=== PATIENT | female | born 1965 | race Caucasian/White ===

== ENCOUNTER 2020-10-16 21:15 | Emergency (ER) | payer OTHER ==
[~2020-10-16] VITALS: Ht 165.1 cm; Wt 83.9 kg
[2020-10-16] MEDS ORDERED: LISINOPRIL20 MG PO (21:45)
[2020-10-16 21:53] LABS: URINE BILIRUBIN NEGATIVE (Negative); URINE BLOOD TRACE (Negative); URINE CLARITY CLEAR; URINE COLOR YELLOW; URINE GLUCOSE-RANDOM NEGATIVE (Negative); URINE KETONES NEGATIVE (Negative); URINE LEUKOCYTES-REFLEX NEGATIVE (Negative); URINE NITRITE-REFLEX NEGATIVE (Negative); URINE PROTEIN NEGATIVE (Negative); URINE SPECIFIC GRAVITY 1.025 (1.005-1.030); URINE UROBILINOGEN 0.2 E.U./dl (0.2-1.0)
[2020-10-16 21:59] LABS: AMP/METHAMP POSITIVE (Negative); BARBITURATES Negative (Negative); BENZODIAZEPINES Negative (Negative); COCAINE Negative (Negative); METHADONE Negative (Negative); OPIATES Negative (Negative); PCP Negative (Negative); THC POSITIVE (Negative)
[2020-10-16 22:26] LABS: ABSOLUTE BASOPHILS 0.1 thou/uL (0.0-0.2); ABSOLUTE EOSINOPHILS 0.1 thou/uL (0.0-0.7); ABSOLUTE LYMPHOCYTES 4.2 thou/uL (0.8-5.3); ABSOLUTE MONOCYTES 0.8 thou/uL (0.0-1.2); ABSOLUTE NEUTROPHILS 7.5 thou/uL (1.6-8.1); BASOPHILS 0.9 %; EOSINOPHILS 1.1 %; HEMATOCRIT 40.7 % (37.0-47.0); HEMOGLOBIN 13.7 gm/dL (12.0-15.0); MCH 31.3 pg (26.0-34.0); MCHC 33.6 g/dL (28.0-37.0); MONOCYTES 6.3 %; MPV 6.6 fl. (7.2-11.1); NUCLEATED RBCS 0 /100WBC; PLATELET COUNT* 408 thou/uL (150-400); POLYS 58.7 %; RBC 4.38 mil/uL (4.20-5.00); RDW-CV 12.8 % (10.5-14.5); WBC 12.8 thou/uL (4.0-11.0)
[2020-10-16 22:53] LABS: CALCIUM 9.6 mg/dL (8.5-10.1); POTASSIUM 3.9 mmol/L (3.5-5.1)
[2020-10-16 22:57] LABS: ALBUMIN 3.9 g/dL (3.4-5.0); TOTAL BILIRUBIN 0.2 mg/dL (<0.1-1.0); TOTAL PROTEIN 7.3 g/dL (6.4-8.2)
[2020-10-16 23:37] VITALS: BP 145/74
--- NOTE | 2020-10-17 09:30 | EKG ---
[place] [address] ELECTROCARDIOGRAM REPORT Name: DAT JACOBS Room: [facility]#: [id number] Admission: 10/16/20 Attend Phys: Discharge: 10/16/20 Date of : 69 Date of Service: 10/16/202116 Report #: [id number] THIS REPORT FOR: //name// [facility] ED Test Date: 2020-10-16 Test Time: 21:17:06 Pat Name: DAT JACOBS Department: Room: Gender: F [employer]: GUICHO : 1965 Requested By: Edna Jerry Order Number: [id number] MD: Santos Youssef Measurements Intervals [place] Rate: 104 P: 38 [place]: 167 QRS: 20 QRSD: 93 T: 61 QT: 351 QTc: 462 Interpretive Statements Sinus tachycardia Minimal ST depression, anterior leads No previous ECG available for comparison Electronically Signed On 10-17-2020 9:30:31 EDUCATIONAL ADVISOR by Santos Youssef [email or web address] <ELECTRONICALLY SIGNED> By: Santos Youssef MD, [facility] 10/17/2030 16 16 Santos Youssef MD, [facility] /EPI
== END 2020-10-16 23:39 | disposition left against medical advice (07) ==
LOC: M.ERS 21:15
PROVIDERS: Personal Emergency Response Attendant
DX: I16.0 Hypertensive urgency (principal); R07.89 Other chest pain; Z91.040 Latex allergy status; Z88.0 Allergy status to penicillin